=== PATIENT | male | born 1940 | race Two or more races ===

== ENCOUNTER 2017-11-01 12:59 | Outpatient (CLI) | payer MEDICARE ==
[~2017-11-01 12:59] MED LIST: BP med; MICARDIS20 MG ORAL; OMEGA 3 1,0001 EACH PO; TAMSULOSIN HCL0.4 MG ORAL; VITAMIN D1000 UNI1 ORAL; XARELTO10 MG ORAL; [UNRECOGNIZED DRUG - OTHER] PO; [UNRECOGNIZED DRUG - REMARK]
--- NOTE | 2017-11-01 14:21 | GI Progress Note ---
Assessment/Plan Problems: (1) Tachycardia ICD Codes: R00.0 - Tachycardia, unspecified SNOMED: 9645847 (2) Abdominal pain ICD Codes: R10.9 - Unspecified abdominal pain SNOMED: 36743675 (3) GERD (gastroesophageal reflux disease) ICD Codes: K21.9 - Gastro-esophageal reflux disease without esophagitis SNOMED: 532175057 Status: unchanged Status Narrative Discussed with Dr. Sauceda. Assessment/Plan CXR reviewed with patient, unremarkable findings. cont dexilant daily rx xifaxin 550mg BID x 14 days referred to cardiology to manage BP, Dr. Smith RTC x 1 month The patient was seen and examined at bedside and all new and available data was reviewed in the patients chart. I agree with the above findings, impression and plan. (Patient seen earlier today. Signature stamp does not reflect patient encounter time.). - Davon Sauceda MD Subjective Subjective chest pain SOB after eating and walking short distances Objective T 97.8 BP 157/119 P 97 97 RA General Appearance: WD/WN, no apparent distress, alert Cardiovascular: normal rate Respiratory/Chest: normal breath sounds, no respiratory distress Abdominal Exam: normal bowel sounds, non tender, soft Extremities: normal range of motion, non-tender Maryana Jones N.P. Nov 01, 2017 14:21 FELISA SAUCEDA Nov 05, 2017 09:09
== END 2017-11-01 13:32 | disposition home or self-care (01) ==
LOC: PAN 12:59
DX: K21.9 Gastro-esophageal reflux disease without esophagitis (principal); R10.9 Unspecified abdominal pain; R00.0 Tachycardia, unspecified
CPT/HCPCS: 99212

== ENCOUNTER 2020-06-03 14:43 | Outpatient (CLI) | payer MEDICARE ==
[2020-06-03 14:53] VITALS: BP 137/98
--- NOTE | 2020-06-03 15:03 | General Progress Note ---
Subjective ROS Limited/Unobtainable: Yes Allergies: Coded Allergies: No Known Allergies (Unverified , 06/18/16) Objective Last 24 Hour Vital Signs Date Time Temp Pulse Resp B/P (MAP) Pulse Ox O2 Delivery O2 Flow Rate FiO2 06/03/20 14:53 97.3 94 16 137/98 98 General Appearance: alert EENT: normal ENT inspection Neck: supple Cardiovascular: normal peripheral pulses Respiratory/Chest: lungs clear Abdomen: normal bowel sounds, non tender, soft Extremities: non-tender Assessment/Plan Problem List: (1) Colonic polyp ICD Codes: K63.5 - Polyp of colon SNOMED: 79997166 (2) A-fib ICD Codes: I48.91 - Unspecified atrial fibrillation SNOMED: 68582673 (3) HTN (hypertension) ICD Codes: I10 - Essential (primary) hypertension SNOMED: 63794725 (4) History of DVT (deep vein thrombosis) ICD Codes: Z86.718 - Personal history of other venous thrombosis and embolism SNOMED: 618986813 (5) GERD (gastroesophageal reflux disease) ICD Codes: K21.9 - Gastro-esophageal reflux disease without esophagitis SNOMED: 238546533 (6) Abdominal pain ICD Codes: R10.9 - Unspecified abdominal pain SNOMED: 02862532 Assessment/Plan: SADAF Rubio align repeat colon in one year Marty Greene MD Jun 03, 2020 15:03
[2020-06-04] MEDS ORDERED: METOPROLOL SUCC25 MG ORAL (08:08)
== END 2020-06-03 16:43 | disposition home or self-care (01) ==
LOC: PAN 14:43
DX: K63.5 Polyp of colon (principal); I48.91 Unspecified atrial fibrillation; I10 Essential (primary) hypertension; Z86.718 Personal history of other venous thrombosis and embolism; K21.9 Gastro-esophageal reflux disease without esophagitis; R10.9 Unspecified abdominal pain; K56.609 Unspecified intestinal obstruction, unspecified as to partial versus complete obstruction
CPT/HCPCS: 99212